=== PATIENT | male | born 1935 | race Caucasian/White ===

== ENCOUNTER 2017-04-25 16:36 | Observation (INO) | payer MEDICARE, BC ==
[~2017-04-25] VITALS: Ht 170.2 cm; Wt 85.5 kg
[2017-04-25 16:40] VITALS: BP 192/99; PULSE 62; RESP 16; TEMP 98.7; O2SAT 97
--- NOTE | 2017-04-25 17:41 | PD ---
HPI Chief Complaint: Neuro Symptoms/ Deficits Time Seen by Provider: 17:39 Travel History International Travel<30 days: No Contact w/Intl Traveler<30days: No Traveled to known affect area: No History of Present Illness HPI 81-year-old male came to the emergency room with history of sudden onset of aphasia at known while he was eating his supper. Patient says it lasted for about 5 minutes. He slowly started to get his speech back. Patient also had a similar episode 2 weeks ago which in his opinion was worse than this time since he just could not get the words out right. Right actually recorded the event and it lasted for about 10 minutes then. Patient never went to seek medical help at that time. Today he is here since he is afraid these might be stroke. Vital signs are stable. Patient has a very extensive coronary artery disease history. He had a quadruple bypass 15 years ago and had 3 stents put in about 4 or 5 years ago. He takes 1 baby aspirin every day and Plavix. No history of headache. No history of vomiting. No history of syncopal episode. Currently patient is neurologically intact. Patient denies of any unilateral weakness during the event. He recently recovered from shingles that started in November of last year. This involved his left eye and his vision has been a little bit blurry since then. There was no worsening of the vision during the events. Patient never had stroke in the past. [facility] Past Medical History Narrative Medical List of his past medical, surgical, social and family history is reviewed from the nursing note. Social History Tobacco Use: No Allergies-Medications (Allergen,Severity, Reaction): Coded Allergies: No Known Allergies (Unverified , 04/25/17) Comments No known drug allergies. Reported Meds & Prescriptions Reported Meds & Active Scripts Active Reported Aspirin 81 Mg Chew 81 Mg CHEW DAILY Clopidogrel (Clopidogrel Bisulfate) 75 Mg Tab 75 Mg PO DAILY Ramipril 10 Mg Cap 10 Mg PO DAILY Metoprolol Tartrate 50 Mg Tab 50 Mg PO DAILY Narrative Medication List of his home medications reviewed from the nursing note. Review of Systems Except as stated in HPI: all other systems reviewed are Neg Neurologic: Positive: Other (aphasia) Physical Exam Narrative GENERAL: Awake, alert, elderly, no obvious distress SKIN: Focused skin assessment warm/dry. HEAD: Atraumatic. Normocephalic. EYES: Pupils equal and round. No scleral icterus. No injection or drainage. ENT: No nasal bleeding or discharge. Mucous membranes pink and moist. NECK: Trachea midline. No JVD. CARDIOVASCULAR: Regular rate and rhythm. No murmur appreciated. RESPIRATORY: No accessory muscle use. Clear to auscultation. Breath sounds equal bilaterally. GASTROINTESTINAL: Abdomen soft, non-tender, nondistended. Hepatic and splenic margins not palpable. MUSCULOSKELETAL: No obvious deformities. No clubbing. No cyanosis. No edema. NEUROLOGICAL: Awake and alert. No obvious cranial nerve deficits. Motor grossly within normal limits. Normal speech. NIH stroke score of 0 PSYCHIATRIC: Appropriate mood and affect; insight and judgment normal. Data Data Last Documented VS Orders Orders Electrocardiogram (04/25/17 17:51) Complete Blood Count With Diff (04/25/17 17:51) Basic Metabolic Panel (Bmp) (04/25/17 17:51) Troponin I (04/25/17 17:51) Ct Brain W/O Iv Contrast(Rout) (04/25/17 17:51) Chest, Single Ap (04/25/17 17:51) Ecg Monitoring (04/25/17 17:51) Iv Access Insert/Monitor (04/25/17 17:51) Oximetry (04/25/17 17:51) Sodium Chloride 0.9% Flush (Ns Flush) (04/25/17 18:00) Prothrombin Time / Inr (Pt) (04/25/17 19:38) Act Partial Throm Time (Ptt) (04/25/17 19:38) Admit Order (Ed Use Only) (04/25/17 19:43) Consult Neurology (04/25/17 ) Thyroid Stimulating Hormone (04/25/17 18:50) Labs Laboratory Tests Test 04/25/17 18:50 White Blood Count 6.4 TH/MM3 Red Blood Count 4.71 MIL/MM3 Hemoglobin 15.0 GM/DL Hematocrit 43.9 % Mean Corpuscular Volume 93.3 FL Mean Corpuscular Hemoglobin 32.0 PG Mean Corpuscular Hemoglobin Concent 34.3 % Red Cell Distribution Width 12.6 % Platelet Count 172 TH/MM3 Mean Platelet Volume 6.6 FL Neutrophils (%) (Auto) 63.1 % Lymphocytes (%) (Auto) 21.7 % Monocytes (%) (Auto) 9.3 % Eosinophils (%) (Auto) 3.0 % Basophils (%) (Auto) 2.9 % Neutrophils # (Auto) 4.0 TH/MM3 Lymphocytes # (Auto) 1.4 TH/MM3 Monocytes # (Auto) 0.6 TH/MM3 Eosinophils # (Auto) 0.2 TH/MM3 Basophils # (Auto) 0.2 TH/MM3 CBC Comment DIFF FINAL Differential Comment Blood Urea Nitrogen 15 MG/DL Creatinine 1.10 MG/DL Random Glucose 100 MG/DL Calcium Level 8.3 MG/DL Sodium Level 140 MEQ/L Potassium Level 4.5 MEQ/L Chloride Level 108 MEQ/L Carbon Dioxide Level 27.8 MEQ/L Anion Gap 4 MEQ/L Estimat Glomerular Filtration Rate 64 ML/MIN Troponin I LESS THAN 0.02 NG/ML Thyroid Stimulating Hormone 3rd Gen 2.610 uIU/ML MDM Medical Decision Making Medical Screen Exam Complete: Yes Emergency Medical Condition: Yes Medical Record Reviewed: Yes Differential Diagnosis TIA Narrative Course 6:05 PM awaiting for blood test results and CAT scan to be done and resulted. I 've explained to the patient that even if all the workup is negative he'll need to be admitted for observation and to be seen by the urologist. Patient understands and is agreeable to that plan. 6:[address] and the x-ray are within normal limits. Awaiting for the blood test. Case will be signed over to the oncoming ER physician. Procedures EKG Prior to Arrival: No Admitting Information Admitting Physician Requests: Observation Scripts Atorvastatin (Atorvastatin) 40 Mg Tab 40 MG PO HS for Cholesterol Management for 30 Days, #30 TAB 0 Refills Prov: Rosa Elena José 04/27/17 Emilie Daugherty MD Apr 25, 2017 17:41
[2017-04-25 17:42] VITALS: BP 155/64; PULSE 77; RESP 20; O2SAT 96
[2017-04-25] MEDS ORDERED: ASPI-516 CHEW (17:46)
[2017-04-25] MEDS ORDERED: CLOP75TA PO (17:46)
[2017-04-25] MEDS ORDERED: METO50TA PO (17:46)
[2017-04-25] MEDS ORDERED: RAMI10CA PO (17:46)
[2017-04-25] MEDS ORDERED: LOVA20TA PO (17:46)
[2017-04-25] MEDS ORDERED: SODIUM CHLORIDE 0.9% FLUSH 10 ML FLUSH IVF PRN (18:00)
--- NOTE | 2017-04-25 18:20 | RADRPT ---
EXAM DATE/TIME: 04/25/2017 18:05 [facility] COMPARISON: No previous studies available for comparison. INDICATIONS : Shortness of breath. MEDICAL HISTORY : Cardiovascular disease. SURGICAL HISTORY : CABG. ENCOUNTER: Initial ACUITY: 1 day PAIN SCORE: 0/10 LOCATION: Bilateral chest FINDINGS: A single view of the chest demonstrates the lungs to be symmetrically aerated without evidence of mas s, infiltrate or effusion. The heart size is enlarged. There is evidence of previous cardiothoracic surgery.. Osseous structures are intact. CONCLUSION: No acute disease. Waylon Walter MD on April 25, 2017 at 18:17 Board Certified Radiologist. This report was verified electronically.
--- NOTE | 2017-04-25 18:42 | RADRPT ---
EXAM DATE/TIME: 04/25/2017 18:26 [facility] COMPARISON: No previous studies available for comparison. INDICATIONS : Episode of aphasia and headache. RADIATION DOSE: 61.12 CTDIvol (mGy) MEDICAL HISTORY : Cardiovascular disease. Anticoagulant therapy. SURGICAL HISTORY : CABG Coronary artery stent. ENCOUNTER: Initial ACUITY: 1 day PAIN SCALE: 4/10 LOCATION: cranial TECHNIQUE: Multiple contiguous axial images were obtained of the head. Using automated exposure control and adj ustment of the mA and/or kV according to patient size, radiation dose was kept as low as reasonably a chievable to obtain optimal diagnostic quality images. DICOM format image data is available electro nically for review and comparison. FINDINGS: CEREBRUM: The ventricles are normal for age. There is bilateral cortical atrophy characteristic of patients age . No evidence of midline shift, mass lesion, hemorrhage or acute infarction. No extra-axial fluid c ollections are seen. POSTERIOR FOSSA: The cerebellum and brainstem are intact. The 4th ventricle is midline. The cerebellopontine angle i s unremarkable. EXTRACRANIAL: The visualized portion of the orbits is intact. Mild chronic right maxillary sinus disease. SKULL: The calvaria is intact. No evidence of skull fracture. CONCLUSION: Normal examination for a patient of this age. Chronic right maxillary sinus disease. Waylon Walter MD on April 25, 2017 at 18:38 Board Certified Radiologist. This report was verified electronically.
[2017-04-25 18:49] VITALS: O2SAT 96
[2017-04-25 18:57] LABS: BASOPHIL # 0.2 TH/MM3 (0-0.2); BASOPHIL % 2.9 % (0.0-2.0); EOSINOPHIL # 0.2 TH/MM3 (0-0.4); HEMATOCRIT 43.9 % (39.0-51.0); LYMPH % 21.7 % (9.0-44.0); LYMPHOCYTE # 1.4 TH/MM3 (1.0-4.8); MEAN CELL VOLUME 93.3 FL (80.0-100.0); MEAN CORPUSCULAR HGB CONC 34.3 % (32.0-36.0); MEAN PLATELET VOLUME 6.6 FL (7.0-11.0); MONO % 9.3 % (0.0-8.0); MONOCYTE # 0.6 TH/MM3 (0-0.9); NEUT % 63.1 % (16.0-70.0); PLATELET COUNT 172 TH/MM3 (150-450); RED BLOOD COUNT 4.71 MIL/MM3 (4.50-5.90); RED CELL DISTRIBUTION WIDTH 12.6 % (11.6-17.2); WHITE BLOOD COUNT 6.4 TH/MM3 (4.0-11.0)
[2017-04-25 19:06] LABS: CHLORIDE 108 MEQ/L (98-107); SODIUM (NA) 140 MEQ/L (136-145)
[2017-04-25 19:08] LABS: CALCIUM 8.3 MG/DL (8.5-10.1)
[2017-04-25 19:09] LABS: BICARBONATE 27.8 MEQ/L (21.0-32.0); BLOOD UREA NITROGEN 15 MG/DL (7-18); GLUCOSE,RANDOM 100 MG/DL (74-106)
[2017-04-25 19:12] LABS: GLOMERULAR FILTRATION RATE 64 ML/MIN (>89)
[2017-04-25 19:17] LABS: TROPONIN I LESS THAN 0.02 NG/ML (0.02-0.05)
--- NOTE | 2017-04-25 19:42 | PD ---
Physical Exam Narrative Patient was seen by ED physician and signed out to me. Data Data Last Documented VS Vital Signs Date Time Temp Pulse Resp B/P (MAP) Pulse Ox O2 Delivery O2 Flow Rate FiO2 04/25/17 18:49 96 04/25/17 17:42 77 20 04/25/17 16:40 98.7 Orders Orders Electrocardiogram (04/25/17 17:51) Complete Blood Count With Diff (04/25/17 17:51) Basic Metabolic Panel (Bmp) (04/25/17 17:51) Troponin I (04/25/17 17:51) Ct Brain W/O Iv Contrast(Rout) (04/25/17 17:51) Chest, Single Ap (04/25/17 17:51) Ecg Monitoring (04/25/17 17:51) Iv Access Insert/Monitor (04/25/17 17:51) Oximetry (04/25/17 17:51) Sodium Chloride 0.9% Flush (Ns Flush) (04/25/17 18:00) Labs Laboratory Tests Test 04/25/17 18:50 White Blood Count 6.4 TH/MM3 Red Blood Count 4.71 MIL/MM3 Hemoglobin 15.0 GM/DL Hematocrit 43.9 % Mean Corpuscular Volume 93.3 FL Mean Corpuscular Hemoglobin 32.0 PG Mean Corpuscular Hemoglobin Concent 34.3 % Red Cell Distribution Width 12.6 % Platelet Count 172 TH/MM3 Mean Platelet Volume 6.6 FL Neutrophils (%) (Auto) 63.1 % Lymphocytes (%) (Auto) 21.7 % Monocytes (%) (Auto) 9.3 % Eosinophils (%) (Auto) 3.0 % Basophils (%) (Auto) 2.9 % Neutrophils # (Auto) 4.0 TH/MM3 Lymphocytes # (Auto) 1.4 TH/MM3 Monocytes # (Auto) 0.6 TH/MM3 Eosinophils # (Auto) 0.2 TH/MM3 Basophils # (Auto) 0.2 TH/MM3 CBC Comment DIFF FINAL Differential Comment Blood Urea Nitrogen 15 MG/DL Creatinine 1.10 MG/DL Random Glucose 100 MG/DL Calcium Level 8.3 MG/DL Sodium Level 140 MEQ/L Potassium Level 4.5 MEQ/L Chloride Level 108 MEQ/L Carbon Dioxide Level 27.8 MEQ/L Anion Gap 4 MEQ/L Estimat Glomerular Filtration Rate 64 ML/MIN Troponin I LESS THAN 0.02 NG/ML [facility] Supervised Visit with [facility]: No Interpretation(s) Last Impressions Head CT 04/25/171750 Signed Impressions: Service Date/Time: Tuesday, April 25, 2017 18:26 - CONCLUSION: Normal examination for a patient of this age. Chronic right maxillary sinus disease. Waylon Walter MD Chest X-Ray 04/25/171750 Signed Impressions: Service Date/Time: Tuesday, April 25, 2017 18:05 - CONCLUSION: No acute disease. Waylon Walter MD 1937 PM. CBC within normal limit. BMP within normal limit. Cardiac enzymes are normal. Diagnosis Primary Impression: TIA (transient ischemic attack) Qualified Codes: G45.9 - Transient cerebral ischemic attack, unspecified Admitting Information Admitting Physician Requests: Admit Michael Valdez MD Apr 25, 2017 19:42
[2017-04-25] MEDS ORDERED: SODIUM CHLOR 0.9% 1000 ML INJ 1,000 ML IV SCH (19:45)
[2017-04-25 20:00] VITALS: PULSE 50
[2017-04-25] MEDS ORDERED: SODIUM CHLORIDE 0.9% FLUSH 10 ML FLUSH IV FLUSH PRN (20:00)
[2017-04-25] MEDS ORDERED: ASPIRIN 325 MG TAB PO ONE (20:00)
[2017-04-25] MEDS ORDERED: DEXTROSE 50% IN WATER 50 ML VIAL(D50) IV PUSH PRN (20:00)
[2017-04-25] MEDS ORDERED: CLOPIDOGREL 75 MG TAB PO ONE (20:00)
[2017-04-25] MEDS ORDERED: GLUCAGON 1 MG/ML VIAL OTHER PRN (20:00)
[2017-04-25 20:20] VITALS: BP 154/86
[2017-04-25 20:47] LABS: PROTHROMBIN TIME - PATIENT 10.5 SEC (9.8-11.6)
[2017-04-25] MEDS: SODIUM CHLORIDE 0.9% FLUSH 10 ML FLUSH IV FLUSH SCH (21:00)
[2017-04-25] MEDS: INSULIN ASPART SUPPLEMENTAL SCALE SQ SCH (21:00)
[2017-04-25 22:00] VITALS: BP 170/75; PULSE 51; PULSE 96; RESP 20; TEMP 97.1; O2SAT 96
[2017-04-25] MEDS: SODIUM CHLOR 0.9% 1000 ML INJ 1,000 ML IV SCH (22:20)
[2017-04-26] VITALS (7 sets, daily range): BP systolic 141–190; BP diastolic 64–84; PULSE 49–106; RESP 18–20; TEMP 96.3–98.2; O2SAT 93–95
[2017-04-26 06:46] LABS: AUTOMATED NEUTROPHIL # 3.7 TH/MM3 (1.8-7.7); BASOPHIL # 0.1 TH/MM3 (0-0.2); BASOPHIL % 0.9 % (0.0-2.0); EOSINOPHIL # 0.2 TH/MM3 (0-0.4); EOSINOPHIL % 4.2 % (0.0-4.0); HEMATOCRIT 44.2 % (39.0-51.0); HEMOGLOBIN 14.8 GM/DL (13.0-17.0); LYMPH % 21.5 % (9.0-44.0); LYMPHOCYTE # 1.2 TH/MM3 (1.0-4.8); MEAN CORPUSCULAR HEMOGLOBIN 31.1 PG (27.0-34.0); MEAN CORPUSCULAR HGB CONC 33.4 % (32.0-36.0); MEAN PLATELET VOLUME 6.9 FL (7.0-11.0); MONO % 9.1 % (0.0-8.0); MONOCYTE # 0.5 TH/MM3 (0-0.9); NEUT % 64.3 % (16.0-70.0); PLATELET COUNT 160 TH/MM3 (150-450); RED BLOOD COUNT 4.76 MIL/MM3 (4.50-5.90); RED CELL DISTRIBUTION WIDTH 12.5 % (11.6-17.2); WHITE BLOOD COUNT 5.7 TH/MM3 (4.0-11.0)
[2017-04-26 07:00] LABS: ALBUMIN 3.6 GM/DL (3.4-5.0); BICARBONATE 26.3 MEQ/L (21.0-32.0); CALCIUM 8.4 MG/DL (8.5-10.1)
[2017-04-26 07:03] LABS: DIRECT BILIRUBIN ADULT 0.1 MG/DL (0.0-0.2)
[2017-04-26 07:04] LABS: CREATININE 0.88 MG/DL (0.60-1.30)
[2017-04-26 07:05] LABS: INDIRECT BILIRUBIN 0.5 MG/DL (0.0-0.8); TOTAL BILIRUBIN ADULT 0.6 MG/DL (0.2-1.0); TOTAL PROTEIN 6.4 GM/DL (6.4-8.2)
[2017-04-26] MEDS: INSULIN ASPART SUPPLEMENTAL SCALE SQ SCH ×4 (08:00→21:00)
[2017-04-26] MEDS: SODIUM CHLORIDE 0.9% FLUSH 10 ML FLUSH IV FLUSH SCH ×2 (08:57→22:14)
--- NOTE | 2017-04-26 09:17 | RADRPT ---
EXAM DATE/TIME: 04/26/2017 08:17 [facility] COMPARISON: No previous studies available for comparison. INDICATIONS : Cerebrovascular accident. MEDICAL HISTORY : Myocardial infarction. Hypercholesterolemia. TIA. Skin cancer. SURGICAL HISTORY : Tonsillectomy. Quadruple bypass. Cardiac stents. ENCOUNTER: Initial ACUITY: 1 day PAIN SCORE: 0/10 LOCATION: Bilateral neck PEAK SYSTOLIC VELOCITIES (cm/sec): ICA/CCA RATIO: Right: 1.3 Left: 1.2 ICA: Right: 121 Left: 100 CCA: Right: 96 Left: 85 ECA: Right: 84 Left: 83 VERTEBRAL: Right: 53 antegrade Left: 52 antegrade Elevated flow velocities and ICA/CCA ratios have been found to correlate with increased degrees of vessel stenosis, calculated as percentage of diameter relative to a normal segment of distal ICA/CCA FINDINGS: RIGHT CAROTID: No significant stenosis is visualized. The waveforms are within normal limits. LEFT CAROTID: No significant stenosis is visualized. The waveforms are within normal limits. VERTEBRAL ARTERIES: Antegrade flow is seen in both vertebral arteries. MISCELLANEOUS: None. CONCLUSION: No evidence of flow-limiting carotid stenosis. Martin Whittington MD on April 26, 2017 at 9:14 Board Certified Radiologist. This report was verified electronically.
[2017-04-26 09:28] LABS: CHOLESTEROL/ HDL RATIO 4.07 RATIO; HDL CHOLESTEROL 35.1 MG/DL (40.0-60.0)
[2017-04-26] MEDS: SODIUM CHLOR 0.9% 1000 ML INJ 1,000 ML IV SCH (10:49)
--- NOTE | 2017-04-26 11:44 | ECHRPT ---
Indication: CVA/TIA CONCLUSIONS Normal left ventricular size. Wall thickness is normal. Trace mitral valve regurgitation. There is trace tricuspid valve regurgitation. The estimated pulmonary arterial pressure is 44.1 mmHg. Trivial pulmonary valve regurgitation. BP: 181 / 78 HR: 112 Rhythm: Sinus MEASUREMENTS (Male / Female) Normal Values Technical Quality:Fair 2D ECHO LV Diastolic Diameter PLAX 4.1 cm 4.2 - 5.9 / 3.9 - 5.3 cm LV Systolic Diameter PLAX 2.8 cm IVS Diastolic Thickness 1.0 cm 0.6 - 1.0 / 0.6 - 0.9 cm LVPW Diastolic Thickness 1.0 cm 0.6 - 1.0 / 0.6 - 0.9 cm LV Relative Wall Thickness 0.5 RV Internal Dim ED PLAX 2.7 cm LVOT Diameter 2.0 cm LA Systolic Diameter LX 4.0 cm 3.0 - 4.0 / 2.7 - 3.8 cm LV Ejection Fraction MOD 4C 62.1 % LV Cardiac Index MOD 4C 2986.4 cm/minm LV Ejection Fraction 4C AL 65.6 % LV Cardiac Index 4C AL 3266.2 cm/minm M-MODE Aortic Root Diameter MM 2.7 cm LA Systolic Diameter MM 4.0 cm LA Ao Ratio MM 1.5 AV Cusp Separation MM 1.7 cm DOPPLER AV Peak Velocity 130.0 cm/s AV Peak Gradient 6.8 mmHg LVOT Peak Velocity 61.7 cm/s LVOT Peak Gradient 1.5 mmHg AV Area Cont Eq pk 1.5 cm MV Area PHT 4.0 cm Mitral E Point Velocity 94.8 cm/s Mitral A Point Velocity 85.4 cm/s Mitral E to A Ratio 1.1 TR Peak Velocity 292.0 cm/s TR Peak Gradient 34.1 mmHg Right Atrial Pressure 10.0 mmHg Pulmonary Artery Systolic Pressu 44.1 mmHg Right Ventricular Systolic Press 44.1 mmHg PV Peak Velocity 93.7 cm/s PV Peak Gradient 3.5 mmHg FINDINGS LEFT VENTRICLE The left ventricular systolic function is normal with an estimated ejection fraction in the range of 60-65%. Normal left ventricular size. Wall thickness is normal. RIGHT VENTRICLE Normal right ventricular size and systolic function. LEFT ATRIUM The left atrial size is normal. RIGHT ATRIUM The right atrial size is normal. ATRIAL SEPTUM Normal atrial septal thickness without atrial level shunting by limited color doppler interrogation. AORTA The aortic root and proximal ascending aorta are normal in size on limited imaging. MITRAL VALVE Trace mitral valve regurgitation. AORTIC VALVE Trileaflet aortic valve. TRICUSPID VALVE Structurally normal tricuspid valve. There is trace tricuspid valve regurgitation. The estimated pulmonary arterial pressure is 44.1 mmHg. PULMONARY VALVE Trivial pulmonary valve regurgitation. VESSELS The inferior vena cava is normal in size. PERICARDIUM No pericardial effusion. Morales Galan MD, FACC (Electronically Signed) Final Date:26 April 2017 11:43
[2017-04-26] MEDS: CLOPIDOGREL 75 MG TAB PO SCH (12:56)
[2017-04-26] MEDS: RAMIPRIL 5 MG CAP PO SCH (12:57)
[2017-04-26] MEDS: METOPROLOL TARTRATE 50 MG TAB PO SCH (12:57)
[2017-04-26] MEDS: PRAVASTATIN SOD 20 MG TAB PO SCH (12:57)
--- NOTE | 2017-04-26 12:58 | RADRPT ---
EXAM DATE/TIME: 04/26/2017 12:19 [facility] COMPARISON: CT BRAIN W/O CONTRAST, April 25, 2017, 18:26. INDICATIONS : TIA. MEDICAL HISTORY : Hypertension. Skin ca. SURGICAL HISTORY : CABG Tonsillectomy. Skin ca. ENCOUNTER: Initial ACUITY: 2 day PAIN SCORE: 0/10 LOCATION: Head TECHNIQUE: Multiplanar, multisequence MRI of the brain was performed without contrast. FINDINGS: CEREBRUM: The ventricles are normal for age. There is cortical atrophy involving the sylvian and high convexit y sulci, moderate severity. No evidence of midline shift, mass lesion, hemorrhage or acute infarction . No extraaxial fluid collections are seen. The pituitary gland and suprasellar cistern are normal in configuration. WHITE MATTER: Multifocal areas of T2 prolongation in the periventricular white matter and in the central right cere bellar hemisphere characteristic of ischemic change. POSTERIOR FOSSA: The cerebellum and brainstem are intact. The 4th ventricle is midline. The cerebellopontine angle is unremarkable. The cerebellar tonsils are normal in position. DIFFUSION IMAGING: No focal areas of restricted diffusion are seen. No evidence of acute infarction. EXTRACRANIAL: Metallic field distortion artifact obscures the left maxillary and bilateral ethmoid region. There is a small air-fluid level in right maxillary sinus. CONCLUSION: 1. No acute findings in the brain. No evidence of acute stroke. 2. Moderate ischemic changes with cortical atrophy and periventricular white matter signal change. Th ere is also focal ischemic signal changes in the right cerebellar hemisphere. Merrick Pa MD on April 26, 2017 at 12:51 Board Certified Radiologist. This report was verified electronically.
[2017-04-26] MEDS ORDERED: ASPIRIN 325 MG TAB PO ONE (14:15)
--- NOTE | 2017-04-26 14:57 | RADRPT ---
EXAM DATE/TIME: 04/26/2017 12:19 [facility] COMPARISON: No previous studies available for comparison. INDICATIONS : TIA. MEDICAL HISTORY : Hypertension. Skin ca. SURGICAL HISTORY : CABG Tonsillectomy. Skin ca surgery. ENCOUNTER: Initial ACUITY: 2 day PAIN SCORE: 0/10 LOCATION: head Please note a normal MRA of the brain does not entirely exclude the possibility of a small aneurysm, nor the possibility of distal intracranial vessel disease. TECHNIQUE: 3D time of flight MRA was performed. Source images, multiplanar STS MIP, and 3D volume MIP reconstru ctions were reviewed. FINDINGS: Examination of the anterior circulation demonstrates no evidence of aneurysm or vascular information. No intracranial stenosis is identified. The distal cerebral vessels fill normally. There are patent posterior communicating arteries bilaterally. Examination of posterior fossa also de monstrates no evidence of aneurysm or vascular malformation. The vertebral arteries are codominant. CONCLUSION: Unremarkable MR angiography of the brain. Carter Villela MD on April 26, 2017 at 14:53 Board Certified Radiologist. This report was verified electronically.
--- NOTE | 2017-04-26 14:59 | HHI.HP ---
[facility] Unknown Admission Diagnosis TIA Diagnoses: Chief Complaint: Neurological symptoms Travel History International Travel<30 Days: No Contact w/Intl Traveler <30 Da: No Traveled to Known Affected Are: No History of Present Illness This patient is a very pleasant 81-year-old gentleman with cardiovascular disease who had sudden onset of aphasia while at home. His was at the bedside said that it lasted about 5 minutes and he couldn't express what he was trying to say. Patient says he recalls the event note that he was feeling and resulted help on this suddenly occurred. Patient had a similar episode 2 weeks ago and did not seek medical attention for this. He takes aspirin and Plavix for coronary disease. He has no physical deficit but does say that his speech was quite impaired. Per his he is returning back to baseline. At this time the patient has normal brain images and arterial studies. An echo is normal. He does follow up locally with his blockmason Dr. Jordan. He takes Aleve periodically for back pain but otherwise has been in a reasonable state of health. Patient's recommend for observation due to acute neurological complaint Review of Systems Constitutional: DENIES: Diaphoretic episodes, Fatigue, Fever, Weight gain, Weight loss, Chills, Dizziness, Change in appetite, Night Sweats Endocrine: DENIES: Heat/cold intolerance, Polydipsia, Polyuria, Polyphagia Eyes: DENIES: Blurred vision, Eye pain Ears, nose, mouth, throat: DENIES: Tinnitus, Hearing loss, Vertigo, Nasal discharge, Oral lesions, Throat pain, Hoarseness, Ear Pain, Running Nose, Epistaxis, Sinus Pain, Toothache, Odynophagia Respiratory: DENIES: Apneas, Cough, Snoring, Wheezing, Hemoptysis, Sputum production, Shortness of breath Cardiovascular: DENIES: Chest pain, Palpitations, Syncope, Dyspnea on Exertion , PND, Lower Extremity Edema, Orthopnea, Claudication Gastrointestinal: DENIES: Abdominal pain, Black stools, Bloody stools, Constipation, Diarrhea, Nausea, Vomiting, Difficulty Swallowing, Anorexia Genitourinary: DENIES: Sexual dysfunction, Urinary frequency, Urinary incontinence, Urgency, Hematuria, Dysuria, Nocturia, Penile Discharge, Testicular Pain, Testicular Swelling Musculoskeletal: DENIES: Joint pain, Muscle aches, Stiffness, Joint Swelling, Back pain, Neck pain Integumentary: DENIES: Abnormal pigmentation, Nail changes, Pruritus, Rash Hematologic/lymphatic: DENIES: Bruising, Lymphadenopathy Immunologic/allergic: DENIES: Eczema, Urticaria Neurologic: COMPLAINS OF: Localized weakness, DENIES: Abnormal gait, Headache, Paresthesias, Seizures, Speech Problems, Tremor, Poor Balance Psychiatric: COMPLAINS OF: Confusion, DENIES: Anxiety, Mood changes, Depression , Hallucinations, Agitation, Suicidal Ideation, Homicidal Ideation, Delusions Except as stated in HPI: all other systems reviewed are Neg Past Family Social History Past Medical History Coronary artery disease Hypertension and Hyperlipidemia Past Surgical History Skin cancer Cardiac bypass and cardiac stenting Reported Medications reviewed in the EMR, no recent changes Allergies: Coded Allergies: No Known Allergies (Unverified , 04/25/17) Active Ordered Medications Reviewed in the EMR Family History Mother at 96, father at 79 and had emphysema, brother and sister are healthy but sister did have a nonspecific malignancy Social History , no tobacco or alcohol dependency Physical Exam Vital Signs Vital Signs Date Time Temp Pulse Resp B/P (MAP) Pulse Ox O2 Delivery O2 Flow Rate FiO2 04/26/17 12:55 66 04/26/17 12:53 96.3 55 18 181/84 (116) 04/26/17 08:00 98.2 106 20 180/74 (109) 95 04/26/17 04:00 96.4 62 18 181/78 (112) 95 04/26/17 00:00 96.4 53 20 161/70 (100) 93 04/25/17 22:00 97.1 51 20 170/75 (106) 96 04/25/17 22:00 97.1 96 20 170/75 (106) 96 04/25/17 20:20 93 Nasal Cannula 2.00 04/25/17 20:20 53 15 154/86 (108) 93 04/25/17 20:00 50 04/25/17 18:49 96 04/25/17 17:42 77 20 155/64 (94) 96 04/25/17 16:40 98.7 62 16 192/99 (130) 97 Physical Exam GENERAL: This is a well-nourished, well-developed patient, in no apparent distress. SKIN: No rashes, ecchymoses or lesions. Cool and dry. HEAD: Atraumatic. Normocephalic. No temporal or scalp tenderness. EYES: Pupils equal round and reactive. Extraocular motions intact. No scleral icterus. No injection or drainage. ENT: Nose without bleeding, purulent drainage or septal hematoma. Throat without erythema, tonsillar hypertrophy or exudate. Uvula midline. Airway patent. NECK: Trachea midline. No JVD or lymphadenopathy. Supple, nontender, no meningeal signs. CARDIOVASCULAR: Regular rate and rhythm without murmurs, gallops, or rubs. RESPIRATORY: Clear to auscultation. Breath sounds equal bilaterally. No wheezes , rales, or rhonchi. GASTROINTESTINAL: Abdomen soft, non-tender, nondistended. No hepato-splenomegaly , or palpable masses. No guarding. MUSCULOSKELETAL: Extremities without clubbing, cyanosis, or edema. No joint tenderness, effusion, or edema noted. No calf tenderness. Negative Homans sign bilaterally. NEUROLOGICAL: Awake and alert. Cranial nerves II through XII intact. Motor and sensory grossly within normal limits. Five out of 5 muscle strength in all muscle groups. Normal speech. Laboratory Laboratory Tests Test 04/25/17 18:50 04/25/17 20:10 04/26/17 05:50 White Blood Count 6.4 5.7 Red Blood Count 4.71 4.76 Hemoglobin 15.0 14.8 Hematocrit 43.9 44.2 Mean Corpuscular Volume 93.3 93.0 Mean Corpuscular Hemoglobin 32.0 31.1 Mean Corpuscular Hemoglobin Concent 34.3 33.4 Red Cell Distribution Width 12.6 12.5 Platelet Count 172 160 Mean Platelet Volume 6.6 6.9 Neutrophils (%) (Auto) 63.1 64.3 Lymphocytes (%) (Auto) 21.7 21.5 Monocytes (%) (Auto) 9.3 9.1 Eosinophils (%) (Auto) 3.0 4.2 Basophils (%) (Auto) 2.9 0.9 Neutrophils # (Auto) 4.0 3.7 Lymphocytes # (Auto) 1.4 1.2 Monocytes # (Auto) 0.6 0.5 Eosinophils # (Auto) 0.2 0.2 Basophils # (Auto) 0.2 0.1 CBC Comment DIFF FINAL DIFF FINAL Differential Comment Blood Urea Nitrogen 15 13 Creatinine 1.10 0.88 Random Glucose 100 103 Calcium Level 8.3 8.4 Sodium Level 140 142 Potassium Level 4.5 3.9 Chloride Level 108 110 Carbon Dioxide Level 27.8 26.3 Anion Gap 4 6 Estimat Glomerular Filtration Rate 64 83 Troponin I LESS THAN 0.02 Thyroid Stimulating Hormone 3rd Gen 2.610 Prothrombin Time 10.5 Prothromb Time International Ratio 1.0 Activated Partial Thromboplast Time 25.2 Total Protein 6.4 Albumin 3.6 Alkaline Phosphatase 77 Aspartate Amino Transf (AST/SGOT) 38 Alanine Aminotransferase (ALT/SGPT) 38 Total Bilirubin 0.6 Direct Bilirubin 0.1 Indirect Bilirubin 0.5 Triglycerides Level 228 Cholesterol Level 143 LDL Cholesterol 62 HDL Cholesterol 35.1 Cholesterol/HDL Ratio 4.07 Result Diagram: 04/26/17 0550 04/26/17 0550 Imaging Last Impressions Carotid Artery Ultrasound 04/26/17 0000 Signed Impressions: Service Date/Time: Wednesday, April 26, 2017 08:17 - CONCLUSION: No evidence of flow-limiting carotid stenosis. Martin Whittington MD Brain MRI 04/26/17 0000 Signed Impressions: Service Date/Time: Wednesday, April 26, 2017 12:19 - CONCLUSION: 1. No acute findings in the brain. No evidence of acute stroke. 2. Moderate ischemic changes with cortical atrophy and periventricular white matter signal change. There is also focal ischemic signal changes in the right cerebellar hemisphere. Merrick Pa MD Head CT 04/25/171750 Signed Impressions: Service Date/Time: Tuesday, April 25, 2017 18:26 - CONCLUSION: Normal examination for a patient of this age. Chronic right maxillary sinus disease. Waylon Walter MD Chest X-Ray 04/25/171750 Signed Impressions: Service Date/Time: Tuesday, April 25, 2017 18:05 - CONCLUSION: No acute disease. Waylon Walter MD Capchavezi VTE Risk Assessment Capchavezi VTE Risk Assessment: No/Low Risk (score <= 1) Caprini Risk Assessment Model Point Value = 1 Point Value = 2 Point Value = 3 Point Value = 5 Age 41-60 Minor surgery BMI > 25 kg/m2 Swollen legs Varicose veins or History of unexplained or recurrent spontaneous Oral contraceptives or hormone replacement Sepsis (< 1 month) Serious lung disease, including pneumonia (< 1 month) Abnormal pulmonary function Acute myocardial infarction Congestive heart failure (< 1 month) History of inflammatory bowel disease Medical patient at bed rest Age 61-74 Arthroscopic surgery Major open surgery (> 45 min) Laparoscopic surgery (> 45 min) Malignancy Confined to bed (> 72 hours) Immobilizing plaster cast Central venous access Age >= 75 History of VTE Family history of VTE Factor V Leiden Prothrombin [id number] Lupus anticoagulant Anticardiolipin antibodies Elevated serum homocysteine Heparin-induced thrombocytopenia Other congenital or acquired thrombophilia Stroke (< 1 month) Elective arthroplasty Hip, pelvis, or leg fracture Acute spinal cord injury (< 1 month) Prophylaxis Regimen Total Risk Factor Score Risk Level Prophylaxis Regimen 0-1 Low Early ambulation 2 Moderate Order ONE of the following: *Sequential Compression Device (SCD) *Heparin 5000 units SQ BID 3-4 Higher Order ONE of the following medications: *Heparin 5000 units SQ TID *Enoxaparin/Lovenox 40 mg SQ daily (WT < 150 kg, CrCl > 30 mL/min) *Enoxaparin/Lovenox 30 mg SQ daily (WT < 150 kg, CrCl > 10-29 mL/min) *Enoxaparin/Lovenox 30 mg SQ BID (WT < 150 kg, CrCl > 30 mL/min) AND/OR *Sequential Compression Device (SCD) 5 or more Highest Order ONE of the following medications: *Heparin 5000 units SQ TID (Preferred with Epidurals) *Enoxaparin/Lovenox 40 mg SQ daily (WT < 150 kg, CrCl > 30 mL/min) *Enoxaparin/Lovenox 30 mg SQ daily (WT < 150 kg, CrCl > 10-29 mL/min) *Enoxaparin/Lovenox 30 mg SQ BID (WT < 150 kg, CrCl > 30 mL/min) AND *Sequential Compression Device (SCD) Assessment and Plan Problem List: (1) TIA (transient ischemic attack) ICD Code: G45.9 - Transient cerebral ischemic attack, unspecified Status: Acute Plan: Images that were unremarkable. Patient high-risk due to coronary vascular disease. He is already on aspirin and Plavix. He is also on lovastatin We may need to change him to atorvastatin and continue these medications Will follow-up MRA and neurology consult pending (2) CAD (coronary artery disease) ICD Code: I25.10 - Atherosclerotic heart disease of [place] coronary artery without angina pectoris Plan: Patient will continue with Plavix and aspirin, metoprolol and ramipril. Follows up with Dr. Jordan Assessment and Plan Pending neurology recommendation likely discharge in a.m. Discussed Condition With Patient, spouse Problem Qualifiers (1) TIA (transient ischemic attack): Qualified Codes: G45.9 - Transient cerebral ischemic attack, unspecified Jenny Dickerson MD Apr 26, 2017 14:59
--- NOTE | 2017-04-26 15:28 | MB ---
cc: PAMELLA CATHERINE M.D. DATE OF CONSULTATION: 04/26/2017 REASON FOR CONSULTATION: Neurological consultation. HISTORY OF PRESENT ILLNESS: The patient is an 81-year-old describing that in the past couple of weeks he has had some brief episode of difficulty with his speech and language. On one occasion, like yesterday, it may have lasted 15 seconds or so and the same a couple of weeks ago. Otherwise he might have some minimal stumbling on the words and no additional complications. The patient denies any weakness in the arms or legs. No double vision, no blacking out. No headache. No vertigo or dizziness. He does take a baby aspirin and Plavix since he had a stent in 2004. He also had CABG in 2000. He denies stroke, seizures, otherwise he takes Lovenox, Remipril, metoprolol. NEUROLOGICAL EXAMINATION: Showed an alert and pleasant man. Speech appeared to be normal, minimal dysarthria or minimal expressive aphasia. Ocular movements full. Visual kat full. There is some flattening on the right nasolabial fold of equivocal significance. He has good strength in the upper and lower extremities on the bedside exam and the reflexes were present but diminished and essentially trace at the ankles. Plantar responses were flexor. IMAGING STUDIES: The patient has had a number of studies: An MRI brain is showing no acute abnormality. The carotid ultrasound was unremarkable. He had an MRA head but results are pending. CT brain negative for acute process. LABORATORY DATA: CBC largely unremarkable. Chemistry with essentially normal data with calcium being slightly low. LDL is 62. Echocardiogram: Essentially normal. EKG: Sinus bradycardia. ASSESSMENT Transient speech difficulty characterized by some apparent very brief aphasia. No associated motor deficits. He is right-handed. He has been on aspirin and Plavix for several years, following a stent. His evaluation is discussed above and the MRA head is pending. Would continue with cardiac monitoring. I will request an EEG as well. He may benefit from long-term cardiac monitoring looking for occult atrial fibrillation. Continue statin, aspirin, and Plavix. Thank you for asking us to assist in his care. Pamella Catherine MD [facility] /2:02 PM /2:35 PM
--- NOTE | 2017-04-26 16:07 | EKG ---
Date Performed: 04/25/2017 Time Performed: 18:58:23 PTAGE: 81 years EKG: SINUS BRADYCARDIA WITH SINUS ARRHYTHMIA MODERATE VOLTAGE CRITERIA FOR LVH, CONSIDER NORMAL VARIANT INFERIOR MYOCARDIAL INFARCTION ABNORMAL ECG PREVIOUS TRACING : 03/01/2001 04.38 DOCTOR: Isha Rodriguez Interpretating Date/Time 04/26/2017 16:05:43
[2017-04-26 16:22] LABS: HEMOGLOBIN A1C 5.3 % (4.3-6.0)
[2017-04-27] VITALS: BP 153/72; PULSE 64; RESP 20; TEMP 96.5; O2SAT 96
[2017-04-27] MEDS: SODIUM CHLOR 0.9% 1000 ML INJ 1,000 ML IV SCH ×2 (00:29→12:53)
[2017-04-27 04:00] VITALS: BP 165/77; PULSE 66; RESP 20; TEMP 96.2; O2SAT 95
[2017-04-27 08:00] VITALS: BP 171/68; PULSE 64; RESP 20; TEMP 97.8; O2SAT 96
[2017-04-27] MEDS: INSULIN ASPART SUPPLEMENTAL SCALE SQ SCH ×2 (08:00→12:52)
--- NOTE | 2017-04-27 08:36 | HHI.PR ---
Subjective Remarks Follow-up TIA and CAD. Patient seen and examined, lying in bed comfortably, technical solution architect at bedside. She denies any acute events overnight. States he's been feeling well, no aphasia this morning. Patient has been eating well. Denies any fever, chills, abdominal pain, nausea or vomiting. Ambulating well. MRI results reviewed. Objective Vitals Vital Signs Date Time Temp Pulse Resp B/P (MAP) Pulse Ox O2 Delivery O2 Flow Rate FiO2 04/27/17 04:00 96.2 66 20 165/77 (106) 95 04/27/17 00:00 96.5 64 20 153/72 (99) 96 04/26/17 20:00 76 04/26/17 20:00 97.2 75 20 141/64 (89) 93 04/26/17 12:55 66 04/26/17 12:53 96.3 55 18 181/84 (116) 04/26/17 12:00 98.2 72 18 190/83 (118) 95 I/O 04/26/17 04/26/17 04/26/17 04/27/17 04/27/17 04/27/17 06:59 14:59 22:59 06:59 14:59 22:59 Intake Total 0 ml 240 ml Output Total 400 ml Balance -400 ml 240 ml Intake Oral 0 ml 240 ml Output Urine Total 400 ml # Voids 3 4 # Bowel Movements 1 Result Diagram: 04/26/17 0550 04/26/17 0550 Imaging Last Impressions Head Magnetic Resonance Angiography 04/26/17 0000 Signed Impressions: Service Date/Time: Wednesday, April 26, 2017 12:19 - CONCLUSION: Unremarkable MR angiography of the brain. Carter Villela MD Carotid Artery Ultrasound 04/26/17 0000 Signed Impressions: Service Date/Time: Wednesday, April 26, 2017 08:17 - CONCLUSION: No evidence of flow-limiting carotid stenosis. Martin Whittington MD Brain MRI 04/26/17 0000 Signed Impressions: Service Date/Time: Wednesday, April 26, 2017 12:19 - CONCLUSION: 1. No acute findings in the brain. No evidence of acute stroke. 2. Moderate ischemic changes with cortical atrophy and periventricular white matter signal change. There is also focal ischemic signal changes in the right cerebellar hemisphere. Merrick Pa MD Head CT 04/25/171750 Signed Impressions: Service Date/Time: Tuesday, April 25, 2017 18:26 - CONCLUSION: Normal examination for a patient of this age. Chronic right maxillary sinus disease. Waylon Walter MD Chest X-Ray 04/25/171750 Signed Impressions: Service Date/Time: Tuesday, April 25, 2017 18:05 - CONCLUSION: No acute disease. Waylon Walter MD Objective Remarks GENERAL: Well-nourished, well-developed pleasant male patient in NAD. SKIN: Warm and dry. No rash. HEENT: Normocephalic. Atraumatic. Pupils equal and round. No scleral icterus. No injection or drainage. No nasal bleeding or discharge. Mucous membranes pink and moist. NECK: Supple. Trachea midline. CARDIOVASCULAR: Regular rate and rhythm. S1, S2 noted. No murmur appreciated. RESPIRATORY: No accessory muscle use. Clear to auscultation. Breath sounds equal bilaterally. GASTROINTESTINAL: Abdomen soft, non-tender, nondistended. Normoactive bowel sounds x4. MUSCULOSKELETAL: No obvious deformities. Extremities without clubbing, cyanosis , or edema. NEUROLOGICAL: Awake and alert. No obvious cranial nerve deficits. Motor grossly within normal limits. 5/5 muscle strength in bilateral upper and lower extremities. Normal speech, no aphasia. PSYCHIATRIC: Appropriate mood and affect; insight and judgment normal. A/P Problem List: (1) TIA (transient ischemic attack) ICD Code: G45.9 - Transient cerebral ischemic attack, unspecified Status: Acute Plan: Images reviewed and were unremarkable. Patient high-risk due to coronary vascular disease. He is already on aspirin and Plavix. Patient is on lovastatin at home, changed to high-dose atorvastatin. Brain MRI reviewed showing no acute findings in the brain no evidence of acute stroke. Moderate ischemic changes with cortical atrophy and periventricular white matter signal changes seen. There is also focal ischemic signal changes in the right cerebellar hemisphere. Neurology updated about results. EEG read and normal. Will discharge today, follow up with neurology and cardio in the outpatient setting. Patient symptoms have improved, no change overnight. (2) CAD (coronary artery disease) ICD Code: I25.10 - Atherosclerotic heart disease of [place] coronary artery without angina pectoris Plan: Patient will continue with Plavix and aspirin, metoprolol and ramipril. Follow up with Dr. Jordan in the outpatient setting. Discharge Planning Spoke with neurology, EEG normal, updated on MRA results. Recommendations for follow-up with Dr. Jordan, cardiology, for Holter review and follow up. Also follow-up neurology outpatient. Will DC today. Problem Qualifiers (1) TIA (transient ischemic attack): Qualified Codes: G45.9 - Transient cerebral ischemic attack, unspecified Rosa Elena José Apr 27, 2017 08:36
[2017-04-27] MEDS: SODIUM CHLORIDE 0.9% FLUSH 10 ML FLUSH IV FLUSH SCH (09:00)
--- NOTE | 2017-04-27 09:32 | MG ---
cc: DOMINGO MELARA M.D. Lab No: [id number] Date: 04/27/2017 Age: 81 Sex: M Race: DATE OF : [address] Adler[address] Room 8322, awake, drowsy, asleep with photic stimulation, moderate ischemic changes with atrophy on MRI and focal ischemic change in the right cerebellar hemisphere. This is an 81-year-old man with sudden onset of aphasia lasting 5 minutes, similar episode 2 weeks ago and history of TIA, bypass four vessels, stents. On Plavix, ramipril, Lopressor. DESCRIPTION OF RECORD The patient has a background alpha of 8 Hz, 20-40 microvolts, symmetrical background, awake. EKG shows possibly a sinus arrhythmia due to T waves. Overall symmetrical background. No hyperventilation performed. Photic stimulation mild driving response. IMPRESSION Overall normal-appearing EEG, no epileptiform features. Clinical correlation. MD DAVON Olivia/JOSH /9:12 AM /9:21 AM
[2017-04-27 09:39] VITALS: PULSE 85
[2017-04-27] MEDS ORDERED: ATOR40TA16 PO (09:46)
--- NOTE | 2017-04-27 09:53 | HHI.DCPOC ---
Discharge Care Plan Diagnosis: (1) TIA (transient ischemic attack) (2) CAD (coronary artery disease) Goals to Promote Your Health * To prevent worsening of your condition and complications * To maintain your health at the optimal level Directions to Meet Your Goals Take your medications as prescribed Follow your dietary instruction Follow activity as directed Keep your appointments as scheduled Take your immunizations and boosters as scheduled If your symptoms worsen call your PCP, if no PCP go to Urgent Care Center or Emergency Room Smoking is Dangerous to Your Health. Avoid second hand smoke Call the 24-hour hour crisis hotline for domestic abuse at Rosa Elena José Apr 27, 2017 09:53
[2017-04-27] MEDS: METOPROLOL TARTRATE 50 MG TAB PO SCH (10:21)
[2017-04-27] MEDS: CLOPIDOGREL 75 MG TAB PO SCH (10:21)
[2017-04-27] MEDS: RAMIPRIL 5 MG CAP PO SCH (10:21)
[2017-04-27] MEDS: PRAVASTATIN SOD 20 MG TAB PO SCH (10:22)
[2017-04-27 12:00] VITALS: BP 158/86; PULSE 79; RESP 20; TEMP 98.5; O2SAT 95
--- NOTE | 2017-04-29 15:52 | HM ---
Date Performed: 04/27/2017 Time Performed: 15:49:00 HOOKUP DATE: 04/27/17 03:49:00 PM Wed ANALYSIS START TIME: 04/27/2017 3:54:00 PM ANALYSIS END TIME: 04/28/2017 3:55:12 PM PATIENT AGE: 81 PATIENT HEIGHT: 67 PATIENT WEIGHT: 188 DRUG LIST: room # 8322 / tn home PATIENT DIAGNOSIS: TIA TEST NARRATIVE: The patient's average heart rate was 70 BPM. No episodes of tachycardia wer e noted. Heart rates less than 50 BPM were noted 5% of the time. No pauses exceeding 2.0 seconds were noted. 15 ventricular ectopics, which represented < 1% of the total beat count, were noted. The highest ventricular ectopic frequency occurred from 09:00 AM to 10:00 AM Paula. During this time 5 VE(s) occurred. Ventricular ectopics were observed as 11 isolated beat(s) and as 1 run(s). 17 5 supraventricular ectopics, which represented < 1% of the total beat count, were noted. The highest supraventricular ectopic frequency occurred from 01:00 PM to 02:00 PM Paula. During this time 22 SVE( s) occurred. No episodes of ST depression (defined as -1.0 mm or more) were noted in channel 1. No episodes of ST depression (defined as -1.0 mm or more) were noted in channel 2. No episodes of ST depression (defined as -1.0 mm or more) were noted in channel 3. NO DIARY RETURNED BY PATIENT TEST INTERPRETATION: Patient undergoes a Holter monitor to see if there is any relationship of h is neurologic symptoms with an underlying rhythm disturbance. Only the expanded tracings are subject to interpretation. He is largely in Sinus rhythm throughout the monitoring session with occassional PACs and occasional PVCs. There is one episode of irregular rhythm at 1.32 pm on . It most likely is just sinus rhythm with PACs, but because of the artifact, I couldn't entirely exclude atrial fibrillation but I think that possibility is extr jorden unlikely. There is also a 4-beat run of ventricular tachycardia. No diary is provided. Conclusi ons: Probably a normal holter monitor without a significant tachy arrythmias. See description above. Occasional PACS and PVCs with one 4-beat episode of non-sustained ventricular tachycardia. No signif icant tachy arrythma or kisha arrhythmias noted. No diary provided so it is unknown as to whether the patient is symptomatic. Signed by : Radha Pena
== END 2017-04-27 16:00 | disposition home or self-care (01) ==
LOC: PHED 16:36 → INTOOBSV 19:44 → PHEDA 19:44 → PH3A 21:53
PROVIDERS: ADMIT Hospitalist; ATTEND Hospitalist
DX: G45.9 Transient cerebral ischemic attack, unspecified (principal); I25.10 Atherosclerotic heart disease of native coronary artery without angina pectoris; R51 Headache; E78.00 Pure hypercholesterolemia, unspecified; I25.2 Old myocardial infarction; I10 Essential (primary) hypertension; E78.5 Hyperlipidemia, unspecified; R94.31 Abnormal electrocardiogram [ECG] [EKG]; Z95.1 Presence of aortocoronary bypass graft; Z95.5 Presence of coronary angioplasty implant and graft; Z79.82 Long term (current) use of aspirin; Z79.02 Long term (current) use of antithrombotics/antiplatelets; Z85.828 Personal history of other malignant neoplasm of skin
CPT/HCPCS: 70450; 70544; 70551; 71045; 80048; 80061; 80076; 82948; 83036; 84443; 84484; 85025; 85610; 85730; 92610; 93005; 93225; 93226; 93306; 93880; 95819; 96360; 97162; 97165; 97530; 99285; G0378; G8987; G8988; G8989; G8996; G8997; G8998; J7030